=== PATIENT | male | born 1975 | race African-American/Black ===

== ENCOUNTER 2019-05-04 05:22 | Emergency (ER) | payer SELFPAY ==
[2019-05-04] MEDS ORDERED: NS 0.9% 1000 ML** 1,000 ML IV ONE (05:46)
[2019-05-04] MEDS ORDERED: Ondansetron INJ* 2 MG/ML VIAL IV ONE (05:46)
[2019-05-04] MEDS ORDERED: Morphine 4 MG/ML VIAL (1 ml) 4 MG/ML VIAL IV ONE (05:46)
--- NOTE | 2019-05-04 05:47 | ED ---
Abdominal Pain/Male - HPI Summary HPI Summary: Patient is a 43-year-old male who presents emergency Department with complaints of acute piece abdominal pain and vomiting that woke him up this morning. Patient states he's had similar symptoms in the past and believes it is secondary to his gallbladder but states he has no history of cholelithiasis. Patient otherwise denies past medical history. Denies drug or alcohol use. Denies associated symptoms of fevers, chest pain, shortness breath, diarrhea, urinary symptoms. Symptoms are moderate in severity. No current modifying factors. Patient notes he recently moved from [facility] - History of Current Complaint Chief Complaint: EDAbdPain Stated Complaint: ABD PAIN PER EMS Time Seen by Provider: 05/04/19 05:34 Hx Obtained From: Patient Pain Intensity: 9 - Allergies/Home Medications Allergies/Adverse Reactions: Allergies Allergy/AdvReac Type Severity Reaction Status Date / Time MS Fish Allergy Allergy Unknown Verified 04/15/16 22:22 [Fish Allergy] Reaction Details MS Tomato [Tomato] Allergy Unknown Verified 04/15/16 22:22 Reaction Details Home Medications: Home Medications Albuterol HFA INHALER* [Ventolin HFA Inhaler*] 2 puff INH Q4H PRN 05/04/19 [ History Confirmed 05/04/19] Buprenorp/Nalox 8-2 MG FILM [Suboxone 8 mg-2 mg Sl Film] 1 each SL TID 05/04/19 [History Confirmed 05/04/19] Gabapentin TAB(NF) [Neurontin 600 mg TAB(NF)] 800 mg PO TID 05/04/19 [History Confirmed 05/04/19] Insulin Glargine,Hum.rec.anlog [Basaglar Jamelikpen] 40 unit SUBCUT BEDTIME [History Confirmed 05/04/19] Mirtazapine TAB* [Remeron TAB*] 30 mg PO BEDTIME 05/04/19 [History Confirmed ] PMH/Surg Hx/FS Hx/Imm Hx Previously Healthy: Yes Endocrine/Hematology History: Denies: Hx Anticoagulant Therapy, Hx Blood Disorders Sensory History: Reports: Other Sensory Impairments - 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 Opthamlomology History: Reports: Other Sensory Impairments - 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 - Immunization History Date of Tetanus Vaccine: UTD Date of Influenza Vaccine: none Infectious Disease History: No Infectious Disease History: Denies: Traveled Outside the [place] in Last 30 Days - Family History Known Family History: Positive: None, Non-Contributory - Social History Occupation: Unemployed Lives: Nursing Home Alcohol Use: None Hx Substance Use: No Substance Use Type: Reports: None Smoking Status (MU): Current Every Day Smoker - 3 cigs per day Review of Systems Constitutional: Negative Negative: Fever Cardiovascular: Negative Negative: Palpitations, Chest Pain Respiratory: Negative Negative: Shortness Of Breath, Cough Positive: Abdominal Pain, Vomiting, Nausea. Negative: Diarrhea Genitourinary: Negative Negative: dysuria Neurological: Negative All Other Systems Reviewed And Are Negative: Yes Physical Exam Triage Information Reviewed: Yes Vital Signs On Initial Exam: Initial Vitals Temp Pulse Resp BP Pulse Ox 98.8 F 93 22 159/95 98 05/04/19 05:24 05/04/19 05:24 05/04/19 05:24 05/04/19 05:24 05/04/19 05:24 Vital Signs Reviewed: Yes Appearance: Positive: Pain Distress - Pt. lying in bed on his right side shaking in pain. Skin: Positive: Warm, Cold Head/Face: Positive: Normal Head/Face Inspection Eyes: Positive: Normal, EOMI, LOUISA Neck: Positive: Supple Respiratory/Lung Sounds: Positive: Other - Mild diffuse expiratory wheeze throughout. Cardiovascular: Positive: Normal, RRR Abdomen Description: Positive: Other: - Abd. is soft with diffuse tenderness with guarding. Neurological: Positive: Normal, CN Intact II-III Psychiatric: Positive: Affect/Mood Appropriate Procedures - Sedation Patient Received Moderate/Deep Sedation with Procedure: No Diagnostics - Vital Signs Vital Signs Temp Pulse Resp BP Pulse Ox 05/04/19 05:24 98.8 F 93 22 159/95 98 - Laboratory Result Diagrams: 05/04/19 06:33 05/04/19 06:33 Lab Statement: Any lab studies that have been ordered have been reviewed, and results considered in the medical decision making process. Abdominal Pain Male Course/Dx - Course Course Of Treatment: Pt. presenting with diffuse upper abd. pain and vomiting. He is afebrile with stable VS. ECG done at 0615 shows a sinus rhythm of 62bpm, normal axis, no ST elevation or depression, no prior for comparsion. Labs show minimally elevated WBC and mild chronic anemia. Normal CRP. CT per radiology: 1. THERE IS CIRCUMFERENTIAL THICKENING OF THE WALL OF THE VISUALIZED DISTAL ESOPHAGUS AND. MILD GASTRIC WALL THICKENING. RECOMMEND UPPER ENDOSCOPY FOR FURTHER EVALUATION. 2. MILD HEPATOMEGALY AND HEPATIC STEATOSIS. Pt. given a dose of IV pepcid and GI cocktail. On re-exam he is feeling a bit better and is tolerating water and crackers. Discussed results with pt. He notes he use to take omeprazole but ran out. Will rx omeprazole. Advised pt. he will need to f.u with GI for outpt. scope. To call [facility] today for f.u and referral. Discussed foods to avoid. To return to ER if sxs change or worsen. Pt. understands and agrees with plan. - Diagnoses Differential Diagnosis/HQI/PQRI: AMI, Appendicitis, Constipation, Diverticulitis , Gall Bladder Disease, Hepatitis, Pancreatitis Provider Diagnoses: Gastritis Discharge ED - Sign-Out/Discharge Documenting (check all that apply): Patient Departure - Discharge Plan Condition: Improved Disposition: HOME Prescriptions: Omeprazole 40 mg PO DAILY #30 capsule. Ondansetron TAB* [Zofran 4 MG Tab*] 4 mg PO Q6H PRN #12 tab PRN Reason: Nausea Patient Education Materials: Gastritis (ED), Diet for Stomach Ulcers and Gastritis (ED) Referrals: [facility] [Outside] [facility] [Outside] Jason Stokes MD [Medical Doctor] - Additional Instructions: Call the [facility] today to schedule an appointment to be referred to GI Take medication as directed Avoid smoking, alcohol, spicy/acidic foods, coffee/tea Return to ER if symptoms change or worsen - Billing Disposition and Condition Condition: IMPROVED Disposition: Home
[2019-05-04 06:59] LABS: ABS Basophils 0.1 10^3/ul (0-0.2); ABS Eosinophils 0.1 10^3/ul (0-0.6); ABS Lymphocytes 1.2 10^3/ul (1.0-4.8); ABS Monocytes 0.5 10^3/ul (0-0.8); ABS Neutrophils 9.6 10^3/ul (1.5-7.7); Eosinophil % 0.7 %; Hematocrit 35 % (42-52); Hemoglobin 11.7 g/dL (14.0-18.0); Lymphocyte % 10.1 %; Mean Corpuscular HGB Conc 33 g/dL (31-36); Mean Corpuscular Hemoglobin 27 pg (27-31); Mean Corpuscular Volume 83 fL (80-94); Mean Platelet Volume 8.4 fL (7.4-10.4); Platelet Count 299 10^3/uL (150-450); Red Blood Count 4.26 10^6 /uL (4.18-5.48); Red Cell Distribution Width 19 % (10-15); White Blood Count 11.4 10^3/uL (3.5-10.8)
[2019-05-04 07:09] LABS: Albumin/Globulin Ratio 1.1 (1-3); BUN/Creatinine Ratio 10.9 (8-20); C Reactive Protein 1.7 mg/L (<8.01); Calcium 8.8 mg/dL (8.6-10.3); EGFR African American 109.7 (>60); EGFR Non-African American 90.7 (>60); Globulin 3.5 g/dL (2-4); Total Bilirubin 0.3 mg/dL (0.2-1.0); Total Protein 7.5 g/dL (6.4-8.9)
[2019-05-04] MEDS ORDERED: Iodixanol* (CONTRAST) 320 MG/ML 100 ML SDV IV ONE (07:17)
[2019-05-04 07:35] LABS: Potassium 4.3 mmol/L (3.5-5.0)
[2019-05-04] MEDS ORDERED: Lidocaine 2% VISCOUS* 15 ML UDC PO ONE (08:44)
[2019-05-04] MEDS ORDERED: Famotidine IV* 10 MG/ML 2 ML (20 mg) IV SLOW PU ONE (08:44)
[2019-05-04] MEDS ORDERED: Al Hydrox/Mg Hydrox/Simet LIQ* 30 ML UDC PO ONE (08:44)
[2019-05-04 09:57] LABS: Urine Appearance Cloudy; Urine Bilirubin Negative (Negative); Urine Blood Negative (Negative); Urine Color Straw; Urine Glucose Negative (Negative); Urine Ketones Negative (Negative); Urine Nitrite Negative (Negative); Urine Protein Negative (Negative); Urine Specific Gravity 1.021 (1.010-1.030); Urine Urobilinogen Negative (Negative)
[2019-05-04 11:01] VITALS: BP 129/69
== END 2019-05-04 10:45 | disposition home or self-care (01) ==
LOC: ED 05:22
DX: K29.70 Gastritis, unspecified, without bleeding (principal); F17.210 Nicotine dependence, cigarettes, uncomplicated; Z79.4 Long term (current) use of insulin; Z79.899 Other long term (current) drug therapy
CPT/HCPCS: 36415; 74177; 80053; 81003; 83690; 84484; 85025; 86140; 93005; 96374; 96375; 99283; A9270-GY; J2270; J2405; Q9967

== ENCOUNTER 2019-05-25 13:33 | Emergency (ER) | payer OTHER ==
[2019-05-25] MEDS ORDERED: NS 0.9% 1000 ML** 1,000 ML IV ONE ×2 (13:48→14:49)
[2019-05-25] MEDS ORDERED: Lidocaine 2% VISCOUS* 15 ML UDC PO ONE (13:55)
[2019-05-25] MEDS ORDERED: Ketorolac INJ* 30 MG/ML 1 ML VIAL IV ONE (13:55)
[2019-05-25] MEDS ORDERED: Al Hydrox/Mg Hydrox/Simet LIQ* 30 ML UDC PO ONE (13:55)
--- NOTE | 2019-05-25 14:09 | ED ---
Influenza-Like Illness - HPI Summary HPI Summary: Pt is a 44 y/o M presenting to the ED brought in by EMS for a flu-like illness initially onset about 2 weeks ago. 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 He denies cough, diarrhea, sick contacts, or any pets at home. Patient reports hx of suboxone use, last used 1-2 weeks ago. Denies current drug use. History limited as patient very restless in room yelling "im cold". Smokes a few cigarettes a day. No hx IV drug use. IDDM. Here recently for n/v, given Zofran. - History of Current Complaint Chief Complaint: EDGeneral Hx Obtained From: Patient Onset/Duration: Gradual Onset, Lasting Weeks, Still Present Severity: Moderate Associated Signs & Symptoms: Fever, Vomiting - Allergy/Home Medications Allergies/Adverse Reactions: Allergies Allergy/AdvReac Type Severity Reaction Status Date / Time Fish Containing Products Allergy Unknown Verified 05/25/19 14:28 Reaction Details tomato Allergy Unknown Verified 05/25/19 14:28 Reaction Details PMH/Surg Hx/FS Hx/Imm Hx Previously Healthy: Yes Endocrine/Hematology History: Reports: Hx Diabetes Denies: Hx Anticoagulant Therapy, Hx Blood Disorders Sensory History: Reports: Other Sensory Impairments - 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 Opthamlomology History: Reports: Other Sensory Impairments - 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 Negative: Diarrhea Positive: Myalgia - hands Neurological: Other - lightheadedness Positive: Paresthesia, Numbness All Other Systems Reviewed And Are Negative: Yes Physical Exam - Summary Physical Exam Summary: Constitutional: Well-developed, Well-nourished, Alert. Uncomfortable/restless Skin: Warm, Dry. Multiple crusting lesions to hands, back, torso, and legs. Well -healing scar to spine. s/p skin graft of L hand. HENT: Dry mucous membranes. Eyes: Conjunctiva normal Neck: Musculoskeletal ROM normal neck. (-) JVD, (-) Stridor, (-) Nuchal rigidity Cardio: Rhythm regular, rate normal, Heart sounds normal; Intact distal pulses; Radial pulses are 2+ and symmetric. (-) Murmur Pulmonary/Chest wall: Effort normal. (-) Respiratory distress, (-) Wheezes, (-) Rales Abd: Soft, epigastric tenderness, (-) Distension, (-) Guarding, (-) Rebound Musculoskeletal: (-) Edema Lymph: (-) Cervical adenopathy Neuro: Alert, Oriented x3 Psych: Anxious Triage Information Reviewed: Yes Vital Signs On Initial Exam: Initial Vitals Temp Pulse Resp BP Pulse Ox 100.2 F 103 30 139/63 99 05/25/19 13:39 05/25/19 13:39 05/25/19 13:39 05/25/19 13:39 05/25/19 13:39 Vital Signs Reviewed: Yes Procedures - Procedure Summary Procedure Summary: US IV Ultrasound Guided Peripheral IV Procedure Note Indication: Unable to obtain adequate IV access Skin Prep:Chlorhexidine Sterile Prep (allowed to dry for thirty seconds) Sterility: Gloves Insertion: Appropriate time out was taken. Ultrasound guidance was utilized for vein selection, to document selected vessel patency and real time ultrasound visualization of vascular needle entry into venous lumen. Insertion Site: L forearm Type of catheter: 18 gauge catheter Blood return:yes Saline lock: yes Post Procedure: Estimated blood loss: minimal - Sedation Patient Received Moderate/Deep Sedation with Procedure: No Diagnostics - Vital Signs Vital Signs Temp Pulse Resp BP Pulse Ox 05/25/19 13:39 100.2 F 103 30 139/63 99 - Laboratory Result Diagrams: 05/25/19 14:10 05/25/19 14:10 Lab Statement: Any lab studies that have been ordered have been reviewed, and results considered in the medical decision making process. - Radiology CXR Radiology Interpretation Completed By: Radiologist Summary of Radiographic Findings: No acute cardiopulmonary process by radiograph. ED physician has reviewed this report. Re-Evaluation - Re-Evaluation First Eval Change: Improved - labs I will for some other white count, chest x-ray negative urinalysis negative. Patient had 2 L of fluids for dehydration, Much improved, tolerating by mouth. Suspect presentation secondary to viral source versus drug -induced nausea vomiting as patient had urine drug screen with marijuana, cocaine, opiates. 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 - on arrival to ED, patient very agitated , moving all over bed asking for blankets. Noted to have temp 37.9, labs w mildly elevated leukocytosis. CXR neg, flu neg, UA neg. Abd soft, had recent CT a/p c/w GERD and was sent on omeprazole which he has been on in past. No new changes in abd pain. Patient noted to have scabs on body, do not appear superinfected. Denies headache or neck pain, do not suspect meningitis. - after IVF and toradol much calmer. Drank milk and slept. UDS + multiple substances, suspect substance use could be contributing to presentation. - tolerating PO and feeling much improved on discharge - Diagnoses Provider Diagnoses: Dehydration, Nausea & vomiting Discharge ED - Sign-Out/Discharge Documenting (check all that apply): Patient Departure - Discharge Plan Condition: Stable Disposition: HOME Patient Education Materials: Dehydration (ED), Polysubstance Abuse (ED) Referrals: [facility] [Outside] Additional Instructions: You were seen in the emergency department for fatigue, vomiting, dehydration. If any studies were not completed at the time of discharge you will be called with the relevant results. Please follow up with your primary care doctor in next 2-3 days and return to emergency department for fevers, chest pain, abdominal pain, worsening or concerning symptoms. It was a pleasure taking care of you today. - Billing Disposition and Condition Condition: STABLE Disposition: Home - Attestation Statements Document Initiated by Scribe: Yes Documenting Scribe: Ofelia Alas Provider For Whom Delonte is Documenting (Include Credential): Ethan Ortega MD. Scribe Attestation: Ofelia Petit, scribed for Ethan Ortega MD. on 05/26/19 at 1922. Scribe Documentation Reviewed: Yes Provider Attestation: The documentation as recorded by the scribe, Ofelia Alas accurately reflects the service I personally performed and the decisions made by me, Ethan Ortega MD. Status of [place] Document: Viewed
[2019-05-25 14:33] LABS: ABS Basophils 0.1 10^3/ul (0-0.2); ABS Lymphocytes 1.4 10^3/ul (1.0-4.8); ABS Monocytes 1.1 10^3/ul (0-0.8); ABS Neutrophils 9.7 10^3/ul (1.5-7.7); Eosinophil % 0.1 %; Hematocrit 31 % (42-52); Lymphocyte % 11.2 %; Mean Corpuscular HGB Conc 33 g/dL (31-36); Mean Corpuscular Hemoglobin 27 pg (27-31); Mean Corpuscular Volume 82 fL (80-94); Mean Platelet Volume 7.9 fL (7.4-10.4); Platelet Count 311 10^3/uL (150-450); Red Cell Distribution Width 20 % (10-15); White Blood Count 12.3 10^3/uL (3.5-10.8)
[2019-05-25 14:44] LABS: Albumin 3.8 g/dL (3.2-5.2); Albumin/Globulin Ratio 0.9 (1-3); BUN/Creatinine Ratio 26.1 (8-20); Calcium 8.9 mg/dL (8.6-10.3); EGFR African American 87.9 (>60); EGFR Non-African American 72.6 (>60); Globulin 4.2 g/dL (2-4); Potassium 3.5 mmol/L (3.5-5.0); Total Bilirubin 0.7 mg/dL (0.2-1.0)
[2019-05-25 16:25] LABS: Influenza A Molecular NEGATIVE (Negative); Influenza B Molecular NEGATIVE (Negative)
[2019-05-25 18:26] LABS: Urine Appearance Clear; Urine Bilirubin Negative (Negative); Urine Blood Negative (Negative); Urine Color Yellow; Urine Glucose Negative (Negative); Urine Ketones 2+ (Negative); Urine Nitrite Negative (Negative); Urine Protein 1+(30 mg/dL) (Negative); Urine Specific Gravity 1.023 (1.010-1.030); Urine Urobilinogen Negative (Negative)
[2019-05-25 18:36] LABS: Urine Bacteria Absent (Absent); Urine Red Blood Cell Trace(0-2/hpf) (Absent); Urine White Blood Cell Trace(0-5/hpf) (Absent)
[2019-05-25 19:14] LABS: Urine Benzodiazepine Screen None Detected (None Detect); Urine Opiates Screen Presumptive Positive (None Detect)
[2019-05-25] MEDS ORDERED: Pantoprazole TAB * 40 MG TAB PO ONE (20:11)
[2019-05-25 20:21] VITALS: BP 157/78
== END 2019-05-25 20:21 | disposition home or self-care (01) ==
LOC: ED 13:33
DX: R11.2 Nausea with vomiting, unspecified (principal); E86.0 Dehydration; E11.9 Type 2 diabetes mellitus without complications; F17.210 Nicotine dependence, cigarettes, uncomplicated
CPT/HCPCS: 36415; 71046; 80053; 80307; 81003; 81015; 83605; 85025; 87040; 87086; 96361; 96374; 99283; A9270-GY; J1885